=== PATIENT | male | born 1990 | race Caucasian/White ===

== ENCOUNTER 2016-10-04 10:25 | Emergency (ER) | payer SELFPAY ==
[2016-10-04 10:35] VITALS: RESP 18
--- NOTE | 2016-10-04 10:56 | EDPHY ---
H & P Stated Complaint: altercation with police and "was tazed" Time Seen by Provider: 10/04/16 10:44 HPI/ROS: CHIEF COMPLAINT: Neck and back pain post alleged assault by police HISTORY OF PRESENT ILLNESS: 26-year-old male arrives via ambulance accompanied by police , in custody of police,after being involved in alleged altercation with police. States that he had to be taste and that the Taser barbs impacted his thoracic spine and he was then tackled. States that he was not choked. He is complaining of C-spine and thoracic spine pain. He is also complaining of thumb pain. Admits to heroin and methamphetamine use within the past 24 hours. Denies head injury. Denies peripheral paresthesia, weakness, numbness. Denies chest pain or trauma. Denies back pain or trauma. Denies genitalia pain or trauma. Denies lower extremity pain or trauma. Tetanus up-to-date PRIMARY CARE PROVIDER: none REVIEW OF SYSTEMS: A ten point review of systems was performed and is negative with the exception of the items mentioned in the HPI PAST MEDICAL/SURGICAL HISTORY: no anticoagulant use, no relevant medical/ surgical history SOCIAL HISTORY: Positive heroin and methamphetamine use PHYSICAL EXAM 1) GENERAL: Well-developed, well-nourished, alert and oriented. Answering questions appropriately. Answering questions appropriately. 2) HEAD: Normocephalic, atraumatic 3) HEENT: Pupils equal, round, reactive to light bilaterally. Negative Horners. Nasopharynx, oropharynx, clear. No deformity or angulation of nose. No septal hematoma. No rhinorrhea. No oral trauma. Ears bilaterally with normal tympanic membranes. No hemotympanum. No fluid or blood in the external auditory canal. No raccoon eyes. No Song sign. Teeth are normally aligned with no gross malocclusion, TMJ bilaterally nontender, facial bones nontender including the zygomatic arch, maxilla mandible. 4) NECK: Cervical collar is on.Cervical collar is removed while holding inline traction and patient is unable to completely differentiate between true midline pain versus just lateral of midline pain.Cervical collar is replaced at that point. There is no evidence of anterior neck injury such as petechiae, ligature merida, hand prints 5) LUNGS: Clear to auscultation bilaterally, no wheezes, no rhonchi, no retractions. No obvious signs of trauma. No chest wall pain. No flaring, no grunting. Moving symmetrically. No crepitus. 6) HEART: Regular rate and rhythm, 7) ABDOMEN: No guarding, no rebound, no focal tenderness, no peritoneal signs, no signs of trauma, no ecchymosis 8) MUSCULOSKELETAL: Right hand: Tender to palpation right thumb and 1st metacarpal. There is an abrasion to the tip of his thumb. There is otherwise no deformity no angulation normal cascading of digits. Neurovascular intact. Otherwise, Moving all extremities, no focal areas of tenderness, no obvious trauma. 9) BACK: There are 2 puncture wounds in his mid thoracic region 1 midline and 1 just lateral of midline consistent with Taser wilder entry site. There is no visible or palpable foreign body. There is no crepitus. No midline vertebral tenderness, no fluctuance, no step-off, no obvious trauma, no visual or palpable abnormality. 10) SKIN: puncture wound to the thoracic spine DIFFERENTIAL DIAGNOSIS: [ In no particular order my differential includes but is not limited to cervical fracture, cervical dislocation or subluxation,, cervico-cranial vessel disssection, muscle strain. - Personal History Current Tetanus/Diphtheria Vaccine: Yes Current Tetanus Diphtheria and Acellular Pertussis (TDAP): Yes Tetanus Vaccine Date: last 10 years - Medical/Surgical History Hx Asthma: No Hx Chronic Respiratory Disease: No Hx Diabetes: No Hx Cardiac Disease: No Hx Renal Disease: No Hx Cirrhosis: No Hx Alcoholism: No Hx HIV/AIDS: No Hx Splenectomy or Spleen Trauma: No Other PMH: drug abuse- pt admits to smoking heroin and using meth daily - Social History Smoking Status: Heavy smoker Constitutional: Initial Vital Signs Temperature (C) 36.9 C 10/04/16 10:25 Heart Rate 92 10/04/16 10:25 Respiratory Rate 18 10/04/16 10:25 Blood Pressure 131/85 H 10/04/16 10:25 O2 Sat (%) 95 10/04/16 10:25 O2 Delivery Mode Room Air Allergies/Adverse Reactions: bee venom protein (honey bee) Allergy (Verified 10/04/16 10:30) Home Medications: Medication Instructions Recorded NK [No Known Home Meds] 10/04/16 Medical Decision Making - Diagnostics Imaging Results: Imaging Impressions Hand X-Ray 10/04/16 10:48 Impression: Negative for fracture. Thoracic Spine X-Ray 10/04/16 10:48 Impression: 1. Negative for fracture. 2. Scoliotic curvature. Cervical Spine CT 10/04/16 10:49 Impression: 1. No acute fracture or soft tissue swelling. 2. If the patient has persistent pain or neurologic deficits, consider cervical spine MRI. Findings discussed with Emergency Department physician, Alysa Mercado on 10/04 at 11:07 a.m. Images reviewed by myself Procedures: Procedure: Splint A Velcro thumb spica splint on the left hand was applied by ER nuclear reactor technician. After application of the splint I returned and re-examined the patient. The splint was adequately immobilizing the joint and distal to the splint the patient's circulation and sensation were intact. Patient shows no signs of compartment syndrome. Was given orthopedic precautions. ED Course/Re-evaluation: Patient was re-evaluated with serial examinations. Discussed his negative imaging results. His cervical collar is removed he is able to perform full range of motion without eliciting midline pain or peripheral paresthesia, weakness, numbness. His Taser sites were cleaned and dressed with antibiotic ointment. His tetanus is already up-to-date. During his emergency department stay was given oral Ativan as he was started to complain of withdrawal from heroin and was also requesting cigarettes. Plan will be discharge to long-term. He is cleared for transport to long-term.Care and management in consultation with [ secondary] supervising physician Dr Gandhi . - Data Points Medications Given: Discontinued Medications Lorazepam (Ativan) 1 mg PO EDNOW ONE Stop: 10/04/16 11:36 Last Admin: 10/04/16 11:39 Dose: 1 mg Departure - Departure Disposition: Home, Routine, Self-Care Clinical Impression: Taser injury Qualifiers: Encounter type: initial encounter Qualified Code(s): T75.4XXA - Electrocution, initial encounter Condition: Good Instructions: Care After Taser Removal (ED) Additional Instructions: You have been cleared for transport to long-term Referrals: Follow-up, with the long-term nurse in 24 hours [Other] - As per Instructions
[2016-10-04] MEDS ORDERED: LORazepam 1 MG TAB PO ONE (11:35)
[2016-10-04 12:28] VITALS: BP 151/85; PULSE 97; TEMP 98.6; O2SAT 97
== END 2016-10-04 12:23 | disposition home or self-care (01) ==
LOC: EDUNIT#
DX: T75.4XXA Electrocution, initial encounter (principal); F17.200 Nicotine dependence, unspecified, uncomplicated